=== PATIENT | male | born 2000 | race Caucasian/White ===

== ENCOUNTER 2021-05-15 01:24 | Emergency (ER) | payer SELFPAY ==
[~2021-05-15] VITALS: Ht 185.4 cm; Wt 59.0 kg
[2021-05-15 02:06] LABS: HEMATOCRIT 39.2 % (39.0-50.0); IMMATURE GRANULOCYTES 0.2 % (0.0-5.0); MEAN CELL VOLUME 88.9 fL CALC (80.0-100.0); MEAN CORPUSCULAR HGB 29.5 pG CALC (26.0-32.0); MEAN CORPUSCULAR HGB CONC 33.2 g/dL CAL (32.0-36.0); NEUT# 2.86 thou/uL (1.82-7.42); RED BLOOD COUNT 4.41 mill/uL (4.70-6.10); RED CELL DISTRI WIDTH 12.5 % (11.5-15.5)
[2021-05-15 02:21] LABS: ALBUMIN 4.4 g/dL (3.2-5.0); ALKALINE PHOSPHATASE 73 u/l (38-126); ANION GAP 11 (6-22 (CALC)); BILIRUBIN, TOTAL 0.8 mg/dL (0.0-1.4); BUN 14 mg/dL (9-20); BUN/CREATININE RATIO 16 (12-20 (CALC)); CARBON DIOXIDE 32 mmol/l (22-30); CHLORIDE 101 mmol/l (95-108); CREATININE 0.9 mg/dL (0.7-1.3); GFR > 60 ML/MIN (>=60 (CALC)); GFR FOR AFR.AMER. > 60 ML/MIN (>=60 (CALC)); POTASSIUM 3.8 mmol/l (3.5-5.1); SGOT/AST 23 u/l (17-59); SODIUM 140 mmol/l (137-146); TOTAL PROTEIN 7.4 g/dL (6.3-8.2)
[2021-05-15 02:33] LABS: MYOGLOBIN 22 ng/mL (0 - 121)
[2021-05-15] MEDS ORDERED: NAPROXEN500 MG PO (02:37)
[2021-05-15 02:57] VITALS: BP 118/74
== END 2021-05-15 02:57 | disposition home or self-care (01) | DRG 313 ==
LOC: EDBD 01:24 → ED 01:24
PROVIDERS: Emergency Medicine
DX: R07.89 Other chest pain (principal); Z86.16 Personal history of COVID-19; Z20.822 Contact with and (suspected) exposure to COVID-19

== ENCOUNTER 2021-06-30 19:12 | Emergency (ER) | payer SELFPAY ==
[~2021-06-30] VITALS: Ht 185.4 cm; Wt 59.0 kg
[~2021-06-30 19:12] MED LIST: NAPROXEN500 MG PO
[2021-06-30 22:10] VITALS: BP 112/68
== END 2021-06-30 22:20 | disposition home or self-care (01) | DRG 179 ==
LOC: ED 19:12
DX: U07.1 COVID-19 (principal); F17.200 Nicotine dependence, unspecified, uncomplicated; Z86.16 Personal history of COVID-19